=== PATIENT | female | born 1990 | race Hispanic/Latino ===

== ENCOUNTER 2024-05-19 05:30 | Inpatient (IN) | payer MEDICAID, OTHER ==
[2024-05-19 06:35] VITALS: BMI 31.3
[2024-05-19] MEDS ORDERED: Methylergonovine 0.2 MG/ML VIAL IM PRN ×2 (06:45→18:01)
[2024-05-19] MEDS ORDERED: Diphenoxylate HCl/Atropine Tablet PO PRN (06:45)
[2024-05-19] MEDS ORDERED: Tranexamic Acid 1,000 MG/10 ML VIAL IVP PRN (06:45)
[2024-05-19] MEDS ORDERED: Carboprost 250 MCG/ML AMP IM PRN (06:45)
[2024-05-19] MEDS ORDERED: Misoprostol 200 MCG TAB PR PRN (06:45)
[2024-05-19] MEDS ORDERED: Lactated Ringer's 1,000 ML IV SCH (06:45)
[2024-05-19] MEDS ORDERED: Oxytocin 30 units/NS 500 ML 500 ML IV SCH ×2 (06:45→18:01)
[2024-05-19] MEDS ORDERED: Ondansetron PF 4 MG/2 ML Vial IVP PRN ×2 (06:45→09:04)
[2024-05-19] MEDS ORDERED: Acetaminophen 500 MG TAB PO PRN (06:45)
[2024-05-19] MEDS ORDERED: hydrALAZINE 20 MG/ML VIAL SLOW IVP PRN ×2 (06:45→18:01)
[2024-05-19] MEDS ORDERED: Promethazine HCl 25 MG/ML VIAL IM PRN ×2 (06:45→09:04)
[2024-05-19 07:02] LABS: Hematocrit 41.7 % (34.9-44.5); Hemoglobin 13.7 g/dL (12.0-15.5); Mean Corpuscular HGB CONC 32.9 g/dL (32.0-36.0); Mean Corpuscular Hemoglobin 28.3 pg (27.0-33.0); Mean Corpuscular Volume 86.2 fL (81.6-98.3); Mean Platelet Volume 10.7 fL (7.4-10.4); Platelet Count 228 10x3/uL (150-450); RBC Distribution Width 14.6 % (11.5-14.5); Red Blood Cell (RBC) Count 4.84 10x6/uL (3.90-5.03); White Blood Cell (WBC) Count 8.5 10x3/uL (3.5-10.5)
[2024-05-19 07:29] LABS: Syphilis Antibody Nonreactive (Nonreactive); Syphilis Antibody Index 0.04 S/CO (<1.00 Non-Reactive)
[2024-05-19 07:30] LABS: HBsAg Index 0.25 S/CO (0-0.99); Hep B Surf Ag - L&D Non-Reactive S/CO (NonReactive)
[2024-05-19] MEDS ORDERED: Acetaminophen 325 MG TAB PO PRN ×2 (09:04→18:01)
[2024-05-19] MEDS ORDERED: Moisturizing Cream (Eucerin) 113 GM JAR TOP PRN (09:04)
[2024-05-19] MEDS ORDERED: Naloxone HCl 0.4 mg/ml Vial IVP PRN ×2 (09:04)
[2024-05-19] MEDS ORDERED: ePHEDrine Sulfate 50 MG/10 ML VIAL SLOW IVP PRN (09:04)
[2024-05-19] MEDS ORDERED: diphenhydrAMINE 50 MG/ML VIAL IVP PRN (09:04)
[2024-05-19] MEDS ORDERED: Communication Order-Pharmacy FS SCH (09:15)
[2024-05-19] MEDS ORDERED: fentaNYL 2 mcg/Ropivacaine 0.2% Epidural 100 ML CADD EPIDURAL SCH (09:15)
[2024-05-19] MEDS ORDERED: Lactated Ringer's 500 ML IV PRN (09:21)
[2024-05-19] MEDS: fentaNYL/Ropivacaine Epidural 100 ML ONE (09:36)
[2024-05-19] MEDS ORDERED: Bisacodyl 10 MG SUPP PR PRN (18:01)
[2024-05-19] MEDS ORDERED: diphenhydrAMINE 25 MG CAP PO PRN (18:01)
[2024-05-19] MEDS ORDERED: Boostrix 0.5 ML (Tdap) VIAL (>/=7 yrs of age) IM ONE (18:01)
[2024-05-19] MEDS ORDERED: Lanolin Ointment 7 GM TUBE TOP PRN (18:01)
[2024-05-19] MEDS ORDERED: Milk Of Magnesia 30 ML UDCUP PO PRN (18:01)
[2024-05-19] MEDS ORDERED: Preparation H Ointment 28 GM TUBE PR PRN (18:01)
[2024-05-19] MEDS ORDERED: Misoprostol 200 MCG TAB VAG PRN (18:01)
[2024-05-19] MEDS: Ferrous Sulfate 325 MG TAB PO SCH (20:38)
[2024-05-19] MEDS: Benzocaine-Menthol 82.5 ML CAN TOP PRN (21:03)
[2024-05-19] MEDS: Ibuprofen 800 MG TAB PO SCH (21:04)
[2024-05-20 08:00] VITALS: TEMP 97.6
[2024-05-20] MEDS: Polyethylene Glycol 3350 17 GM Packet PO SCH (09:06)
[2024-05-20] MEDS: Prenatal Vitamin 1 TAB PO SCH (09:06)
[2024-05-20] MEDS: Ferrous Sulfate 325 MG TAB PO SCH (09:07)
[2024-05-20] MEDS ORDERED: Bupivacaine 0.25% HCL 30 ML VIAL ONE (10:00)
[2024-05-20 11:12] VITALS: BP 107/51
== END 2024-05-20 18:10 | disposition home or self-care (01) | DRG 807 ==
LOC: CSHLD 05:38 → EDBD 05:38 → CSHPED 19:50
PROVIDERS: ADMIT Obstetrics & Gynecology; ATTEND Obstetrics & Gynecology
PROC: 10E0XZZ Delivery of Products of Conception, External Approach (ICD-10-PCS; principal; 2024-05-19)
PROC: 0KQM0ZZ Repair Perineum Muscle, Open Approach (ICD-10-PCS; 2024-05-19)
PROC: 10907ZC Drainage of Amniotic Fluid, Therapeutic from Products of Conception, Via Natural or Artificial Opening (ICD-10-PCS; 2024-05-19)
PROC: 10H07YZ Insertion of Other Device into Products of Conception, Via Natural or Artificial Opening (ICD-10-PCS; 2024-05-19)
DX: O42.02 Full-term premature rupture of membranes, onset of labor within 24 hours of rupture (principal); Z37.0 Single live birth; O24.420 Gestational diabetes mellitus in childbirth, diet controlled; Z3A.39 39 weeks gestation of pregnancy; O70.1 Second degree perineal laceration during delivery; O69.81X0 Labor and delivery complicated by cord around neck, without compression, not applicable or unspecified
CPT/HCPCS: 36415; 51702; 85027; 86780; 86850; 86900; 86901; 87340; J0665